=== PATIENT | male | born 1975 | race Caucasian/White ===

== ENCOUNTER 2016-07-28 21:15 | Outpatient (CLI) | payer OTHER ==
[~2016-07-28 21:15] MED LIST: HYDR1TAB PO; LISI20TA PO
== END 2016-07-29 06:55 | disposition home or self-care (01) ==
LOC: SLEEP 21:15
PROVIDERS: ATTEND Internal Medicine Cardiovascular Disease
DX: G47.33 Obstructive sleep apnea (adult) (pediatric) (principal)
CPT/HCPCS: 95811

== ENCOUNTER → 2016-07-29 | Outpatient (CLI) | payer OTHER ==
--- NOTE | 2016-07-30 12:19 | ECHOCARDIOGRAPHY REPORT ---
PROCEDURE PHYSICIAN: SOPHIE FORDE DATE OF PROCEDURE: 07/29/2016 TWO DIMENSIONAL ECHOCARDIOGRAM REPORT PRIMARY PHYSICIAN: OTHER PHYSICIAN: REFERRING PHYSICIAN: Dr. Salina Aguilar, [facility] ORDERING PHYSICIAN: INDICATION FOR THE PROCEDURE: MEASUREMENTS DERIVED VALUES LV DIAMETER (LAX) NORMALS NORMALS Diastolic 4.7 (3.6-5.2) Eject. Fract. 60% (60%+/-6%) Systolic (2.3-3.9) Diastolic Vol. % Shortening (0.22-0.42) Systolic Vol. Aortic Root IVS THICKNESS Diastolic 1.1 (0.6-1.1) LVPW THICKNESS Diastolic 1. (0.6-1.1) LA DIAMETER Systolic 3.8 (2.1-3.7) FINDINGS: 1. Technical quality is good. 2. The left ventricle is normal in size with normal contractility. Systolic function appeared to be normal. Estimated ejection fraction is 60%. 3. The left atrium is normal in size. No clot or thrombus were seen within the left atrium. 4. The right atrium and right ventricle are normal in size. No clot or thrombus were seen within the right side. 5. Mitral valve is normal in morphology with mild mitral regurgitation noted by color Doppler flow. No mitral valve prolapse. No mitral valve stenosis. 6. Aortic valve is trileaflet with normal opening and closing pattern. No significant aortic stenosis or regurgitation was seen. 7. Tricuspid valve is normal in morphology with mild tricuspid regurgitation noted by color Doppler flow. Doppler across tricuspid valve estimated pulmonary artery pressure of 21+ right atrial pressure. 8. Pulmonic valve is functioning normally. 9. No pericardial effusion. CONCLUSION: 1. Normal left ventricular size and systolic function. Estimated ejection fraction 60%. 2. Mild mitral and tricuspid regurgitation. 3. Estimated pulmonary artery pressure of 30 mmHg. Job ID: [id number] Dictated Date: 07/30/2016 09:59:00 Extract Puller Date: 07/30/2016 12:11:49 / rajinder
== END ==
LOC: CARD 12:44
PROVIDERS: ATTEND Internal Medicine Cardiovascular Disease
DX: R07.9 Chest pain, unspecified (principal); I10 Essential (primary) hypertension; R00.2 Palpitations; Z82.5 Family history of asthma and other chronic lower respiratory diseases; Z82.49 Family history of ischemic heart disease and other diseases of the circulatory system
CPT/HCPCS: 93017; 93225; 93226; 93306

== ENCOUNTER 2019-04-11 10:37 | Emergency (ER) | payer OTHER ==
[~2019-04-11] VITALS: Ht 172.2 cm; Wt 100.0 kg
[2019-04-11] MEDS ORDERED: NS IV 1000 ML 1,000 ML IV ONE (11:13)
[2019-04-11 11:19] LABS: BASOPHILS % (AUTO) 1 % (0-10); EOSINOPHILS % (AUTO) 0 % (0-10); HEMATOCRIT 47 % (40-54); HEMOGLOBIN 16.5 G/DL (13.3-17.7); LYMPHOCYTES # (AUTO) 1.2 X 10^3 (1.0-4.0); LYMPHOCYTES % (AUTO) 26 % (12-44); MEAN CORPUSCULAR HEMOGLOBIN 31 PG (25-34); MEAN CORPUSCULAR HGB CONC 35 G/DL (32-36); MEAN CORPUSCULAR VOLUME 88 FL (80-99); MEAN PLATELET VOLUME 9.3 FL (7.4-10.4); MONOCYTES # (AUTO) 0.4 X 10^3 (0.0-1.0); MONOCYTES % (AUTO) 9 % (0-12); NEUTROPHILS # (AUTO) 3.1 X 10^3 (1.8-7.8); NEUTROPHILS % (AUTO) 65 % (42-75); PLATELET COUNT 126 10^3/uL (130-400); RED CELL DISTRIBUTION WIDTH 12.7 % (10.0-14.5); WHITE BLOOD COUNT 4.8 10^3/uL (4.3-11.0)
[2019-04-11 11:31] LABS: INR 1.1 (0.8-1.4); PROTHROMBIN TIME PATIENT 14.1 SEC (12.2-14.7)
[2019-04-11 11:37] LABS: ALANINE AMINOTRANSFERASE 264 U/L (0-55); ALBUMIN 4.1 GM/DL (3.2-4.5); ALKALINE PHOSPHATASE 156 U/L (40-136); BUN/CREATININE RATIO 9; CALCIUM 8.9 MG/DL (8.5-10.1); CARBON DIOXIDE 27 MMOL/L (21-32); CHLORIDE 99 MMOL/L (98-107); CREATININE SERUM 1.14 MG/DL (0.60-1.30); GFR ESTIMATED > 60; GLUCOSE 98 MG/DL (70-105); POTASSIUM 3.6 MMOL/L (3.6-5.0); SODIUM 137 MMOL/L (135-145); TOTAL PROTEIN 7.2 GM/DL (6.4-8.2)
--- NOTE | 2019-04-11 11:40 | ED General ---
General Chief Complaint: Fever-Adult/Adol Stated Complaint: POSSIBLE MENINGITIS Nursing Triage Note: AMB TO ROOM FROM DR CORNELL OFFICE. PATIENT REPORTS THAT HAS HAD A FEVER FOR 1 WEEK WITH HEADACHE . WAS SEEN AT [facility] ON WEDNESDAY HAD A NEG FLU. ALSO REPORTS WAS ON A CRUISE IN NOV IN [place] Nursing Sepsis Screen: Possible Severe Sepsis Risk Source of Information: Patient, Family Exam Limitations: No Limitations (MILLY ALLEN MD) History of Present Illness Date Seen by Provider: Apr 11, 2019 Time Seen by Provider: 10:40 Initial Comments This 43-year-old gentleman presents to the emergency room accompanied by his as directed by Ijeoma Han for evaluation of persistent fevers 1 week. He has had waves of fever and diaphoresis accompanied by myalgia, headache and skin sensitivity. He denies any respiratory symptoms. He did have some burning with urination a few days ago. He denies any known tick or mosquito bites in recent weeks. He reports traveling to [place], [facility], [place], and the [facility] in November. He did not take any malarial prophylaxis or have any special immunizations prior to travel. He reports being scratched by a kitten prior to his onset of illness he has no localized lymphadenopathy or skin findings at the site of the scratch. (MILLY ALLEN MD) Allergies and Home Medications Allergies Coded Allergies: No Known Drug Allergies (Unverified , 09/11/12) Home Medications Doxycycline Hyclate 100 Mg Tablet, 100 MG PO BID Prescribed by: ALPHONSE ACEVEDO on 04/11/19 1401 Hydrocodone Bit/Acetaminophen 1 Each Tablet, 1-2 EACH PO Q4HR PRN Prescribed by: KRYSTA CORNELL on 09/11/12 1256 Lisinopril 20 Mg Tablet, 20 MG PO DAILY, (Reported) Patient Home Medication List Home Medication List Reviewed: Yes (MILLY ALLEN MD) Review of Systems Review of Systems Constitutional: see HPI EENTM: see HPI Respiratory: no symptoms reported Cardiovascular: no symptoms reported Gastrointestinal: no symptoms reported Genitourinary: see HPI Musculoskeletal: see HPI Skin: see HPI Psychiatric/Neurological: See HPI Hematologic/Lymphatic: No Symptoms Reported Immunological/Allergic: no symptoms reported (MILLY ALLEN MD) Past Yhcawmd-Xegvll-Lnyvsf Hx Past Med/Social Hx: Reviewed and Corrections made (MILLY ALLEN MD) Patient Social History Recent Foreign Travel: No Contact w/Someone Who Travel: No Recent Infectious Disease Expo: No (MILLY ALLEN MD) Past Medical History Surgeries: Yes (Dental) Respiratory: Yes Sleep Apnea Cardiac: Yes (hx of SVT) Hypertension, Valvular Heart Disease (MVR) Neurological: No Reproductive Disorders: No Gastrointestinal: No Musculoskeletal: No Endocrine: No HEENT: No Cancer: No Did You Recieve Any Treatments: No Psychosocial: No Integumentary: No (MILLY ALLEN MD) Family Medical History Diabetes, Hypertension, Stroke (MILLY ALLEN MD) Physical Exam-Suspected Sepsis Physical Exam Vital Signs Vital Signs - First Documented 04/11/19 10:42 Temp 37.2 Pulse 96 Resp 18 B/P (MAP) 144/113 (123) Pulse Ox 97 O2 Delivery Room Air (ALPHONSE ACEVEDO MD) Vital Signs Capillary Refill : Less Than 3 Seconds (MILLY ALLEN MD) Blood Pressure Mean: 123 Height, Weight, BMI Height: '" Weight: lbs. oz. kg; 33.00 BMI Method:Stated General Appearance: WD/WN, Mild Distress HEENT: PERRL/EOMI, TMs Normal, Normal ENT Inspection, Pharynx Normal Neck: Full Range of Motion, Normal Inspection, Non Tender, Supple; No Lymphadenopathy (L), No Lymphadenopathy (R); Other (no nuchal rigidity) Respiratory: Lungs Clear, Normal Breath Sounds, No Accessory Muscle Use, No Respiratory Distress Cardiovascular: Regular Rate, Rhythm, No Edema, No Murmur Gastrointestinal: Normal Bowel Sounds, Non Tender, Soft Extremity: Normal Inspection, No Pedal Edema Neurologic/Psychiatric: Alert, Oriented x3, No Motor/Sensory Deficits, Normal Mood/Affect, magazine feeder II-XII Norm as Tested Skin: normal color, diaphoresis (MILLY ALLEN MD) Focused Exam Lactate Level 04/11/19 11:07: Lactic Acid Level 1.03 (ALPHONSE ACEVEDO MD) Lactic Acid Level Laboratory Tests Test 04/11/19 11:07 Lactic Acid Level 1.03 MMOL/L (0.50-2.00) (ALPHONSE ACEVEDO MD) Progress/Results/Core Measures Suspected Sepsis Recent Fever Within 48 Hours: Yes Infection Criteria Present: Suspected New Infection New/Unexplained Altered Menta: No Sepsis Screen: Possible Severe Sepsis Risk SIRS Temperature: Pulse: 96 Respiratory Rate: 18 Laboratory Tests 04/11/19 11:07: White Blood Count 4.8 Blood Pressure 144 /113 Mean: 123 04/11/19 11:07: Lactic Acid Level 1.03 Laboratory Tests 04/11/19 11:07: Creatinine 1.14, INR Comment 1.1, Platelet Count 126L, Total Bilirubin 1.0 (MILLY ALLEN MD) Results/Orders Lab Results Laboratory Tests Test 04/11/19 11:07 04/11/19 11:47 04/11/19 12:32 Range/Units White Blood Count 4.8 4.3-11.0 10^3/uL Red Blood Count 5.27 4.35-5.85 10^6/uL Hemoglobin 16.5 13.3-17.7 G/DL Hematocrit 47 40-54 % Mean Corpuscular Volume 88 80-99 FL Mean Corpuscular Hemoglobin 31 25-34 PG Mean Corpuscular Hemoglobin Concent 35 32-36 G/DL Red Cell Distribution Width 12.7 10.0-14.5 % Platelet Count 126 L 130-400 10^3/uL Mean Platelet Volume 9.3 7.4-10.4 FL Neutrophils (%) (Auto) 65 42-75 % Lymphocytes (%) (Auto) 26 12-44 % Monocytes (%) (Auto) 9 0-12 % Eosinophils (%) (Auto) 0 0-10 % Basophils (%) (Auto) 1 0-10 % Neutrophils # (Auto) 3.1 1.8-7.8 X 10^3 Lymphocytes # (Auto) 1.2 1.0-4.0 X 10^3 Monocytes # (Auto) 0.4 0.0-1.0 X 10^3 Eosinophils # (Auto) 0.0 0.0-0.3 10^3/uL Basophils # (Auto) 0.0 0.0-0.1 10^3/uL Neutrophils % (Manual) 46 % Lymphocytes % (Manual) 15 % Monocytes % (Manual) 8 % Basophils % (Manual) 1 % Band Neutrophils 21 % Reactive Lymphocytes 9 % Toxic Granulation 1+ Blood Morphology Comment NORMAL Erythrocyte Sedimentation Rate 2 0-15 MM/HR Prothrombin Time 14.1 12.2-14.7 SEC INR Comment 1.1 0.8-1.4 Activated Partial Thromboplast Time 31 24-35 SEC Sodium Level 137 135-145 MMOL/L Potassium Level 3.6 3.6-5.0 MMOL/L Chloride Level 99 98-107 MMOL/L Carbon Dioxide Level 27 21-32 MMOL/L Anion Gap 11 5-14 MMOL/L Blood Urea Nitrogen 10 7-18 MG/DL Creatinine 1.14 0.60-1.30 MG/DL Estimat Glomerular Filtration Rate > 60 BUN/Creatinine Ratio 9 Glucose Level 98 70-105 MG/DL Lactic Acid Level 1.03 0.50-2.00 MMOL/L Calcium Level 8.9 8.5-10.1 MG/DL Corrected Calcium 8.8 8.5-10.1 MG/DL Total Bilirubin 1.0 0.1-1.0 MG/DL Aspartate Amino Transf (AST/SGOT) 174 H 5-34 U/L Alanine Aminotransferase (ALT/SGPT) 264 H 0-55 U/L Alkaline Phosphatase 156 H 40-136 U/L C-Reactive Protein High Sensitivity 8.17 H 0.00-0.50 MG/DL Total Protein 7.2 6.4-8.2 GM/DL Albumin 4.1 3.2-4.5 GM/DL Smear Scan YES Monoscreen NEGATIVE NEGATIVE Urine Color MARCO H Urine Clarity CLEAR Urine pH 6.0 5-9 Urine Specific [place] >=1.030 1.016-1.022 Urine Protein 1+ H NEGATIVE Urine Glucose (UA) NEGATIVE NEGATIVE Urine Ketones NEGATIVE NEGATIVE Urine Nitrite NEGATIVE NEGATIVE Urine Bilirubin 1+ H NEGATIVE Urine Urobilinogen 1.0 < = 1.0 MG/DL Urine Leukocyte Esterase NEGATIVE NEGATIVE Urine RBC (Auto) NEGATIVE NEGATIVE Urine RBC NONE /HPF Urine WBC NONE /HPF Urine Crystals NONE /LPF Urine Bacteria FEW H /HPF Urine Casts NONE /LPF Urine Mucus SMALL H /LPF Urine Culture Indicated CULTURE PENDING (ALPHONSE ACEVEDO MD) Micro Results Microbiology 04/11/19 Influenza Types A,B Antigen (RODOLFO) - Final, Complete (ALPHONSE ACEVEDO MD) My Orders Orders - ALPHONSE ACEVEDO MD Ct Chest Wo (04/11/19 12:25) Ketorolac Injection (Toradol Injection) (04/11/19 13:55) (ALPHONSE ACEVEDO MD) Medications Given in ED Current Medications Medications Dose Ordered Sig/Marge Route Start Time Stop Time Status Last Admin Dose Admin Sodium Chloride 1,000 ml @ 0 mls/hr Q0M ONCE IV 04/11/19 11:13 04/11/19 11:14 DC 04/11/19 11:23 1,000 MLS/HR (ALPHONSE ACEVEDO MD) Vital Signs/I&O 04/11/19 10:42 Temp 37.2 Pulse 96 Resp 18 B/P (MAP) 144/113 (123) Pulse Ox 97 O2 Delivery Room Air (ALPHONSE ACEVEDO MD) Vital Signs/I&O Capillary Refill : Less Than 3 Seconds (MILLY ALLEN MD) Blood Pressure Mean: 123 Progress Note : Time: 12:24 Progress Note Initial workup revealed positive influenza B. However, this does not necessarily explain the liver enzyme abnormalities and minor thrombocytopenia. Patient is being hydrated with 2 L of IV fluids. A hepatitis panel, Monospot, and tickborne panel have been ordered to rule out a concurrent pathology. Chest x-ray was unremarkable. Care of this patient is being transitioned to Dr. Acevedo at this time. (MILLY ALLEN MD) Progress Note : Progress Note 1224: I did see the patient with Dr. Allen. We are pending labs. LR infusing now. Monitor patient. 1245: CT chest without contrast ordered due to radiology recommendation. 1350 Toradol [address] results noted. Does have some mediastinal lymphadenopathy that needs follow-up in 6 months. This was discussed with the patient and family. Overall he is feeling better. Urine is clearing some now that he is hydrated. He would like to go home. Does have headache which is typical. Still no nuchal rigidity. We did discuss options for further evaluation including lumbar puncture which she has declined. Given his symptoms, it is unlikely that this would be bacterial meningitis and so we will hold on that for now. We did discuss the pending lab results. He does have influenza B which may be the culprit for all of this. I did go over at length about home therapy and return precautions to both the patient and family and they verbalized understanding. We will initiate doxycycline outpatient. Discharged home with return precautions. Patient and family verbalize understanding of instructions and agreement with plan. (ALPHONSE ACEVEDO MD) Diagnostic Imaging Diagonstic Imaging: Xray Plain Films/CT/US/NM/MRI: chest Comments Chest x-ray viewed by me and report reviewed. See report below: NAME: LUIS GAMING [facility] REC#: [id number] PT STATUS: REG ER : 1975 PHYSICIAN: MILLY ALLEN MD ADMIT DATE: 04/11/19/ER Draft Date of Exam:04/11/19 CHEST PA/LAT (2 VIEW) EXAMINATION: CHEST (PA AND LATERAL) CLINICAL INDICATION: 43-year-old male, fever. COMPARISON: None. FINDINGS: Heart size and mediastinal contours are unremarkable. There is no identified pneumothorax. There is no pleural effusion. There is a nodular focus projecting over the left upper lobe which potentially could be associated with the left anterior first rib. This measures approximately 2 cm in size. Comparison imaging is not available to assess for stability. There is no otherwise identified potential focal airspace consolidation. IMPRESSION: 1. 2 cm questionable nodular opacity overlying the left lung apex. Dedicated CT chest without contrast is recommended for further assessment. 2. No otherwise identified potential acute cardiopulmonary abnormality. Dictated on workstation # [id number] Dict: 04/11/19 1202 Trans: 04/11/19 1204 CV [id number] Interpreted by: VAHID MOHAN MD (MILLY ALLEN MD) Departure Impression Primary Impression: Influenza B Additional Impression: Dehydration Disposition: 01 HOME, SELF-CARE Condition: Stable Departure-Patient Inst. Decision time for Depature: 13:58 (ALPHONSE ACEVEDO MD) Referrals: LEONA CORNELL MD (PCP/Family) Primary Care Physician Patient Instructions: Flu, Adult (DC), Dehydration, Adult (DC) Scripts Doxycycline Hyclate (Doxycycline Hyclate) 100 Mg Tablet 100 MG PO BID, #20 TAB 0 Refills Prov: ALPHONSE ACEVEDO MD 04/11/19 Copy Copies To 1: LEONA CORNELL MD, JOSHUA T MD Apr 11, 2019 11:40 ALPHONSE ACEVEDO MD Apr 11, 2019 13:55
[2019-04-11 12:03] LABS: BAND NEUTROPHILS 21 %; BASOPHILS % (MANUAL) 1 %; LYMPHOCYTES % (MANUAL) 15 %; MONOCYTES % (MANUAL) 8 %; NEUTROPHILS % (MANUAL) 46 %; REACTIVE LYMPHOCYTES 9 %; TOXIC GRANULATION/VACUOLAZATIO 1+
[2019-04-11 12:04] LABS: RBC MORPH NORMAL
--- NOTE | 2019-04-11 12:05 | Diagnostic Imaging Report ---
EXAMINATION: CHEST (PA AND LATERAL) CLINICAL INDICATION: 43-year-old male, fever. COMPARISON: None. FINDINGS: Heart size and mediastinal contours are unremarkable. There is no identified pneumothorax. There is no pleural effusion. There is a nodular focus projecting over the left upper lobe which potentially could be associated with the left anterior first rib. This measures approximately 2 cm in size. Comparison imaging is not available to assess for stability. There is no otherwise identified potential focal airspace consolidation. IMPRESSION: 1. 2 cm questionable nodular opacity overlying the left lung apex. Dedicated CT chest without contrast is recommended for further assessment. 2. No otherwise identified potential acute cardiopulmonary abnormality. Dictated by: Dictated on workstation # [id number]
[2019-04-11 12:08] LABS: SMEAR SCAN COMMENT YES
[2019-04-11 12:10] LABS: ERYTHROCYTE SEDIMENTATION RATE 2 MM/HR (0-15)
[2019-04-11] MEDS ORDERED: LACTATED RINGERS 1,000 ML IV SCH (12:30)
[2019-04-11 12:40] LABS: CLARITY,URINE CLEAR; COLOR,URINE AMBER; GLUCOSE, URINE (UA) NEGATIVE (NEGATIVE); KETONES,URINE NEGATIVE (NEGATIVE); LEUKOCYTE ESTERASE ,URINE NEGATIVE (NEGATIVE); NITRITE,URINE NEGATIVE (NEGATIVE); PROTEIN,URINE 1+ (NEGATIVE)
[2019-04-11 12:53] LABS: BACTERIA,URINE FEW /HPF; BILIRUBIN,URINE 1+ (NEGATIVE)
--- NOTE | 2019-04-11 13:26 | Diagnostic Imaging Report ---
PROCEDURE: CT chest without contrast. TECHNIQUE: Multiple contiguous axial images were obtained through the chest without the use of intravenous contrast. Auto Exposure Controls were utilized during the CT exam to meet ALARA standards for radiation dose reduction. INDICATION: Positive for flu. Possible meningitis. COMPARISON: None. FINDINGS: Cardiomediastinal structures show normal heart size. There is no large pericardial effusion. There are prominent posterior mediastinal lymph nodes. Enlarged subcarinal lymph node measures 3.2 x 1.6 cm. Inferior to this and medial to the right bronchus intermedius is an additional 1.4 x 2.7 cm enlarged lymph node. No abnormal hilar adenopathy is seen, but evaluation is suboptimal given the lack of intravascular contrast. No abnormal axillary lymph nodes are identified. Evaluation of the lung sweet demonstrates no focal consolidation, large effusion, nor pneumothorax. Several small micronodules are noted and are as follows: * 2 mm subpleural micronodule in the lateral left upper lobe (image 51, series 4). * 4 mm micronodule within the posterior margins of the lingula of the left upper lobe (image 65, series 4). * 3 and 4 mm micronodules within the lateral margins of the left lower lobe (image 77, series 4). * 3 mm subpleural micronodule within the anterior margins of the right middle lobe (image 77, series 4). Osseous structures show no acute abnormalities. No lytic or blastic bony lesions are identified. Included portions of the upper abdomen show diffuse hypodense appearance to the liver consistent with background hepatic steatosis. IMPRESSION: 1. Prominent mediastinal lymph node of uncertain significance or etiology. Six-month follow-up is advised to ensure stability. 2. Several small bilateral pulmonary micronodules. These could be evaluated on follow-up as well. 3. Hepatic steatosis. Dictated by: Dictated on workstation # [id number]
[2019-04-11] MEDS ORDERED: KETOROLAC 30 MG/ML VIAL IVP STA (13:55)
[2019-04-11] MEDS ORDERED: DOXY100T2 PO (14:01)
[2019-04-11 14:11] VITALS: BP 157/86
[2019-04-11 19:59] LABS: HEPATITIS C ANTIBODY C Non-Reactive (Non-Reactive)
== END 2019-04-11 14:10 | disposition home or self-care (01) ==
LOC: EDUNIT# 10:37 → ER 10:38
DX: J10.1 Influenza due to other identified influenza virus with other respiratory manifestations (principal); E86.0 Dehydration; G47.30 Sleep apnea, unspecified; I10 Essential (primary) hypertension
CPT/HCPCS: 36415; 71046; 71250; 80053; 80074; 81000; 83605; 85007; 85027; 85610; 85652; 85730; 86141; 86308; 86618; 86666; 86668; 86757; 87040; 87088; 87804; 96361; 96374

== ENCOUNTER → 2019-08-07 | Outpatient (CLI) | payer OTHER ==
[~2019-08-07] MED LIST changes: +DOXY100T2 PO
--- NOTE | 2019-08-07 14:01 | Diagnostic Imaging Report ---
PROCEDURE: CT chest without contrast. TECHNIQUE: Multiple contiguous axial images were obtained through the chest without the use of intravenous contrast. Auto Exposure Controls were utilized during the CT exam to meet ALARA standards for radiation dose reduction. INDICATION: Followup pulmonary nodule. COMPARISON: 04/11/2019. FINDINGS: A prominent subcarinal lymph node is again suggested. This appears slightly less prominent and appears to relate to a conglomerate of lymph nodes. This now measures 2.3 x 0.9 cm. No definite new adenopathy although evaluation is slightly limited secondary to the lack of intravenous contrast. No aneurysmal dilatation of the thoracic aorta. The heart is within normal limits in size. No significant pericardial effusion. No pleural effusion. No pneumothorax. Stable 2 mm subpleural pulmonary nodule within the lateral left upper lobe, axial image 55. Stable 4 mm lingular pulmonary nodule, axial image 70. Stable 4 mm left lower lobe pulmonary nodule, axial image 82. Stable sub-4 mm right upper lobe pulmonary nodule. Stable 3 mm subpleural right middle lobe pulmonary nodule, axial image 64. No new pulmonary nodules or opacities. The trachea is patent. Diffusely decreased density of the liver, consistent with fatty infiltration of the liver. The visualized upper abdomen is otherwise unremarkable. No acute osseous abnormality. IMPRESSION: Stable bilateral sub-6 mm pulmonary nodules without new pulmonary nodule or opacity. These pulmonary nodules are indeterminate. A followup CT of the chest is recommended in 1 year to ensure stability. Mildly prominent subcarinal conglomerate lymph nodes. This appears slightly less prominent than on the prior exam. Fatty infiltration of the liver. Additional findings as above. Dictated by: Dictated on workstation # [id number]
== END ==
LOC: RAD 13:21
PROVIDERS: ATTEND Internal Medicine
DX: R91.8 Other nonspecific abnormal finding of lung field (principal); K76.0 Fatty (change of) liver, not elsewhere classified
CPT/HCPCS: 71250

== ENCOUNTER → 2019-11-28 | Outpatient (CLI) | payer OTHER | LOC: CARD 08:21 | PROVIDERS: ATTEND Internal Medicine Cardiovascular Disease | DX: I10 Essential (primary) hypertension (principal); R00.2 Palpitations; Z82.49 Family history of ischemic heart disease and other diseases of the circulatory system; R07.9 Chest pain, unspecified | CPT/HCPCS: 93306 ==

== ENCOUNTER 2023-03-02 00:29 | Emergency (ER) | payer SELFPAY ==
[~2023-03-02] VITALS: Ht 172.7 cm; Wt 77.2 kg
[2023-03-02] MEDS ORDERED: SUCCINYLCHOLINE INJ 20 MG/1 ML 10 ML VIAL INJ ONE (00:35)
[2023-03-02] MEDS ORDERED: MIDAZOLAM INJ 5 MG/5 ML VIAL INJ ONE (00:35)
[2023-03-02] MEDS ORDERED: ETOMIDATE INJ SOLN 20 MG/10 ML VIAL IV ONE (00:35)
[2023-03-02] MEDS ORDERED: fentaNYL INJECTION 100 MCG/2 ML VIAL ONE (00:39)
[2023-03-02] MEDS ORDERED: NS IV 1000 ML 1,000 ML IV STA ×2 (00:50→00:55)
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
[2023-03-02] MEDS ORDERED: Tetanus/Diphtheria/Pertussis (Acell) ADULT Vaccine 0.5 ML IM ONE (01:00)
[2023-03-02 01:05] LABS: HEMATOCRIT 49 % (40-54); HEMOGLOBIN 16.7 g/dL (13.3-17.7); MEAN CORPUSCULAR HEMOGLOBIN 32 pg (25-34); MEAN CORPUSCULAR HGB CONC 34 g/dL (32-36); MEAN CORPUSCULAR VOLUME 94 fL (80-99); MEAN PLATELET VOLUME 9.1 fL (9.0-12.2); PLATELET COUNT 278 10^3/uL (130-400); WHITE BLOOD COUNT 12.9 10^3/uL (4.3-11.0)
[2023-03-02 01:15] LABS: PROTHROMBIN TIME PATIENT 13.3 SEC (12.2-14.7)
[2023-03-02 01:17] LABS: ALBUMIN 4.8 GM/DL (3.2-4.5); POTASSIUM 4.6 MMOL/L (3.6-5.0)
[2023-03-02 01:18] LABS: CALCIUM 8.5 MG/DL (8.5-10.1)
[2023-03-02 01:20] LABS: TOTAL PROTEIN 8.3 GM/DL (6.4-8.2)
[2023-03-02 01:21] LABS: BILIRUBIN,TOTAL 0.3 MG/DL (0.1-1.0)
[2023-03-02 01:23] LABS: CREATININE SERUM 1.15 MG/DL (0.60-1.30)
[2023-03-02 01:24] LABS: AMPHETAMINE SCREEN, URINE NEGATIVE (NEGATIVE); BARBITURATE SCREEN URINE NEGATIVE (NEGATIVE); CANNABINOID SCREEN, URINE NEGATIVE (NEGATIVE); COCAINE SCREEN URINE NEGATIVE (NEGATIVE); METHADONE STAT NEGATIVE (NEGATIVE); OPIATE SCREEN URINE NEGATIVE (NEGATIVE); OXYCODONE STAT NEGATIVE (NEGATIVE); TRICYCLIC ANTIDEPRESSANTS SCRE NEGATIVE (NEGATIVE)
[2023-03-02 01:25] LABS: BILIRUBIN,DIRECT 0.1 MG/DL (0.0-0.3); BILIRUBIN,INDIRECT 0.2 MG/DL
[2023-03-02 01:26] LABS: FIBRIN DEGRADATION PRODUCTS 12.5 UG/ML (0.00-0.49); MAGNESIUM 2.6 MG/DL (1.6-2.4)
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
[2023-03-02 02:01] LABS: AMORPHOUS SEDIMENT,UR FEW AMOR URATES /LPF; BACTERIA,URINE NEGATIVE /HPF; BILIRUBIN,URINE NEGATIVE (NEGATIVE); CLARITY,URINE CLEAR; COLOR,URINE YELLOW; GLUCOSE, URINE (UA) NEGATIVE (NEGATIVE); KETONES,URINE NEGATIVE (NEGATIVE); LEUKOCYTE ESTERASE ,URINE NEGATIVE (NEGATIVE); NITRITE,URINE NEGATIVE (NEGATIVE); PROTEIN,URINE NEGATIVE (NEGATIVE)
[2023-03-02 02:30] VITALS: BP 116/77
[2023-03-02] MEDS ORDERED: HOLD METFORMIN - RECEIVED CONTRAST 20 ML VIAL IV SCH (03:00)
[2023-03-02] MEDS ORDERED: IOHEXOL 350 MG/ML 100 ML (OMNIPAQUE 350) VIAL IV ONE (03:00)
[2023-03-02] MEDS ORDERED: NS 100 ML (IVPB) BAG IV ONE (03:00)
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
== END 2023-03-02 02:30 | disposition short-term general hospital (02) ==
LOC: ER 00:34
DX: S09.90XA Unspecified injury of head, initial encounter (principal); S22.080A Wedge compression fracture of T11-T12 vertebra, initial encounter for closed fracture; S32.008A Other fracture of unspecified lumbar vertebra, initial encounter for closed fracture; S22.41XA Multiple fractures of ribs, right side, initial encounter for closed fracture; S00.01XA Abrasion of scalp, initial encounter; S00.81XA Abrasion of other part of head, initial encounter; F10.129 Alcohol abuse with intoxication, unspecified; V89.2XXA Person injured in unspecified motor-vehicle accident, traffic, initial encounter; Y90.8 Blood alcohol level of 240 mg/100 ml or more
CPT/HCPCS: 31500; 51702; 70450; 70486; 70498; 71045; 71260; 72170; 74177; 80048; 80076; 80306; 81000; 83605; 83735; 85027; 85379; 85384; 85610; 85730; 86850; 86900; 86901; 90471; 93041; 94002; 96361; 96365; 96366; 96375; 99291; 99292; G0390; G0480; 36415; 80320; 90715